=== PATIENT | female | born 1990 | race Caucasian/White ===

== ENCOUNTER 2017-06-25 08:50 | Emergency (ER) | payer OTHER ==
[~2017-06-25] VITALS: Ht 152.4 cm; Wt 86.0 kg
[~2017-06-25 08:50] MED LIST: CYCL-319 PO; FERR27TA; IBUP-1542 PO; NITR-58; PREN1TAB49
[2017-06-25 08:54] VITALS: Ht 152.4 cm; Wt 86.0 kg
[2017-06-25] MEDS ORDERED: ACETAMINOPHEN 325 MG TAB PO ONE (10:00)
[2017-06-25 10:07] LABS: URINE BLOOD (Dip) POC 3+ (NEGATIVE)
[2017-06-25] MEDS ORDERED: UDROBDM PO (10:39)
[2017-06-25] MEDS ORDERED: TYL500 PO (10:40)
[2017-06-25] MEDS ORDERED: ONDA-43 PO (10:40)
[2017-06-25] MEDS ORDERED: BENZ1LOZ57 MM (10:41)
--- NOTE | 2017-06-25 10:50 | ERD ---
ER Documentation Chief Complaint Chief Complaint FEVER,SORE THROAT X 3 DAYS HPI This is a 27-year-old female that presents to the ER for fever, cough, nausea, nonbilious nonbloody vomiting and sore throat for the last 3 days. Patient is also complaining of lower back pain. She denies any trauma to the back. She denies urinary bowel incontinence persisting urinary frequency or dysuria. Patient has family members that are sick with similar symptoms at home. Patient did not get her flu shot. Patient denies IV drug use. ROS 12 point review of systems was done, all negative except per HPI. Medications Home Meds Active Scripts Benzocaine/Menthol (Chloraseptic Sore Throat Lozng) 1 Each Lozenge, 1 EACH MM Q4 for 3 Days, LOZENGE Prov:KAVEH LAO 06/25/17 Ondansetron Hcl* (Zofran*) 4 Mg Tab, 4 MG PO Q4H Y for NAUSEA AND OR VOMITING for 3 Days, TAB Prov:KAVEH LAO 06/25/17 Acetaminophen* (Tylenol*) 500 Mg Tab, 500 MG PO Q4H Y for MILD PAIN LEVEL 1-3 for 3 Days, TAB Prov:KAVEH LAO 06/25/17 Guaifenesin-Dextromethorphan* (Robitussin* DM) 100MG/10MG/5ML Syrup, 10 ML PO Q6H Y for COUGH for 5 Days, ML Prov:KAVEH LAO 06/25/17 Reported Medications Ferrous Sulfate (Iron) 1 Tab Tablet 10/23/10 Nitrofurantoin Monohyd Macrocr* (Macrobid*) 100 Mg Capsr 10/23/10 Vits W-Ca,Fe,Fa(<1MG) () 1 Tab Tablet 06/07/10 Allergies Allergies: Coded Allergies: Naproxen (Verified Allergy, Mild, FEVER, SHAKING, 06/07/10) PMhx/Soc History of Surgery: Yes (c section x 3, gall bladder sx) Anesthesia Reaction: No Hx Neurological Disorder: No Hx Respiratory Disorders: No Hx Cardiac Disorders: No Hx Psychiatric Problems: No Hx Miscellaneous Medical Probl: No Hx Alcohol Use: No Hx Substance Use: No Hx Tobacco Use: No Physical Exam Vitals Vital Signs Date Time Temp Pulse Resp B/P Pulse Ox O2 Delivery O2 Flow Rate FiO2 06/25/17 08:54 100.3 111 20 120/69 99 Physical Exam GENERAL: The patient is well-developed, well-nourished, in no acute distress. NECK: Cervical spine is non tender with no step off. Supple, no nuchal rigidity HEENT: Atraumatic. Pupils equal, round and reactive to light. Extraocular muscles are grossly intact. Conjunctivae pink, no discharge. Bilateral tympanic membranes are clear with no evidence of erythema, effusion or dulling of the light reflex. Tonsilar erythema with no exudates or uvular deviation. Clear rhinorrhea. RESPIRATORY: Clear to auscultation bilaterally. There are no rales, wheezes or rhonchi. HEART: Regular rate and rhythm. No murmurs, clicks, rubs or gallops. EXTREMITIES: No clubbing or cyanosis. Full range of motion. Grossly neurovascularly intact. NEUROLOGIC: Alert and oriented. Cranial nerves II through XII are intact. SKIN: There is no rash. The skin is warm and dry. Results 24 hrs Laboratory Tests Test 06/25/17 10:08 Bedside Urine pH (LAB) 6.0 Bedside Urine Protein (LAB) Negative Bedside Urine Glucose (UA) Negative Bedside Urine Ketones (LAB) Negative Bedside Urine Blood 3+ Bedside Urine Nitrite (LAB) Negative Bedside Urine Leukocyte Esterase (L Trace Current Medications Medications (Trade) Dose Ordered Sig/Sue Route PRN Reason Start Time Stop Time Status Last Admin Dose Admin Acetaminophen (Tylenol Tab) 650 mg ONCE ONCE PO 06/25/17 10:00 06/25/17 10:01 DC 06/25/17 09:51 Procedures/MDM Differential diagnosis includes but is not limited to; Viral URI, allergic rhinitis, bronchitis, pertussis,pneumonia. This is likely viral in etiology and does have influenza like symptoms. Clinical suspicion for pneumonia is low as patient appears well, is not hypoxic or in any respiratory distress. Additionally, patients physical examination is benign. Patient will be treated symptomatically as her flu swab was negative and it is too late for jc flu. In regards to patient's nausea and vomiting she does not appear dehydrated and is able to tolerate PO fluids. Back pain may be secondary to influenza like symptoms,l doubt fracture or dislocation as there is no history of trauma. I doubt abscess, diskitis, cauda equina.Patient is well appearing with on meningeal signs, i doubt meningitis. Plan was discussed with patient they understand and agree. Patient needs to follow up with PCP in 1-2 days or return to ER sooner if symptoms worsen. Departure Diagnosis: Primary Impression: Influenza-like symptoms Condition: Stable Patient Instructions: Uri, Viral, No Abx (Adult), Vomiting (6Y-Adult) Additional Instructions: Call your primary care doctor TOMORROW for an appointment during the next 1-2 days.See the doctor sooner or return here if your condition worsens before your appointment time. KAVEH LAO Jun 25, 2017 10:50
== END 2017-06-25 11:36 | disposition home or self-care (01) ==
LOC: FTE 08:50 → MERGE 08:50 → FTE 11:36
DX: R50.9 Fever, unspecified (principal); J02.9 Acute pharyngitis, unspecified; R05 Cough; R11.2 Nausea with vomiting, unspecified; M54.5 Low back pain
CPT/HCPCS: 81003; 87400; 87880; 99283